=== PATIENT | male | born 1955 | race African-American/Black ===

== ENCOUNTER 2020-02-19 10:44 | Emergency (ER) | payer SELFPAY ==
[~2020-02-19] VITALS: Ht 172.7 cm; Wt 79.0 kg
[2020-02-19] MEDS ORDERED: ACETAMINOPHEN 325MG TABLET PO ONE (11:30)
[2020-02-19 11:43] VITALS: BP 140/111
== END 2020-02-19 11:46 | disposition home or self-care (01) ==
LOC: ER 10:44
DX: G89.29 Other chronic pain (principal); M79.642 Pain in left hand; M79.641 Pain in right hand; M77.9 Enthesopathy, unspecified
CPT/HCPCS: 99282

== ENCOUNTER 2022-01-24 07:02 | Emergency (ER) | payer MEDICARE ==
[~2022-01-24] VITALS: Ht 172.7 cm; Wt 82.0 kg
[2022-01-24 07:10] VITALS: BP 121/91
== END 2022-01-24 08:01 | disposition home or self-care (01) ==
LOC: ER 07:37
DX: J06.9 Acute upper respiratory infection, unspecified (principal); Z90.49 Acquired absence of other specified parts of digestive tract
CPT/HCPCS: 99281